=== PATIENT | female | born 1990 | race Caucasian/White ===

== ENCOUNTER 2019-11-08 19:14 | Emergency (ER) | payer BC ==
[~2019-11-08] VITALS: Ht 165.1 cm; Wt 56.7 kg
[2019-11-08 19:35] VITALS: BP 139/68
== END 2019-11-08 20:20 | disposition home or self-care (01) ==
LOC: ER 19:18
DX: S63.613A Unspecified sprain of left middle finger, initial encounter (principal); W01.0XXA Fall on same level from slipping, tripping and stumbling without subsequent striking against object, initial encounter; Y93.89 Activity, other specified; Y92.89 Other specified places as the place of occurrence of the external cause; Y99.8 Other external cause status
CPT/HCPCS: 73120